=== PATIENT | male | born 1995 | race Caucasian/White ===

== ENCOUNTER 2019-04-14 17:08 | Emergency (ER) | payer SELFPAY ==
--- NOTE | 2019-04-14 17:42 | NUR ---
[id number]
--- NOTE | 2019-04-14 18:06 | NUR ---
[id number]
--- NOTE | 2019-04-14 20:30 | NUR ---
PATIENT NIL X3, ASSUMED TO HAVE LEFT AT THIS TIME
== END 2019-04-14 20:32 | disposition left against medical advice (07) ==
LOC: ED 20:25
DX: R05 Cough (principal); Z53.21 Procedure and treatment not carried out due to patient leaving prior to being seen by health care provider